=== PATIENT | female | born 1980 | race Caucasian/White ===

== ENCOUNTER 2022-07-21 17:23 | Emergency (ER) | payer BC ==
[~2022-07-21] VITALS: Ht 162.6 cm; Wt 63.5 kg
== END 2022-07-21 23:23 | disposition home or self-care (01) ==
LOC: ER 17:23
DX: S93.401A Sprain of unspecified ligament of right ankle, initial encounter (principal); X58.XXXA Exposure to other specified factors, initial encounter; Y93.9 Activity, unspecified; Y92.89 Other specified places as the place of occurrence of the external cause; Y99.9 Unspecified external cause status